=== PATIENT | male | born 1990 | race Caucasian/White ===

== ENCOUNTER 2017-01-29 09:23 | Emergency (ER) | payer OTHER ==
[~2017-01-29] VITALS: Ht 190.5 cm; Wt 98.0 kg
[~2017-01-29 09:23] MED LIST: ADDERALL 20 MG20 MG PO; AZITHROMYCIN500 MG PO; NAPRELAN500 MG PO; TYLENOL WITH C1 EACH PO
[2017-01-29] MEDS ORDERED: ALEVE220 M1 PO (09:32)
== END 2017-01-29 09:30 | disposition home or self-care (01) ==
LOC: ED 09:23
DX: Z00.8 Encounter for other general examination (principal)

== ENCOUNTER 2018-12-27 10:06 | Emergency (ER) | payer SELFPAY ==
[~2018-12-27] VITALS: Ht 190.5 cm; Wt 98.0 kg
[~2018-12-27 10:06] MED LIST changes: +ALEVE220 M1 PO
== END 2018-12-27 10:35 | disposition home or self-care (01) ==
LOC: ED 10:06
DX: K08.89 Other specified disorders of teeth and supporting structures (principal)

== ENCOUNTER 2019-12-18 13:38 | Emergency (ER) | payer SELFPAY ==
[~2019-12-18] VITALS: Ht 190.5 cm; Wt 98.0 kg
[2019-12-18] MEDS ORDERED: CLARITIN10 M2 (13:47)
[2019-12-18] MEDS ORDERED: CLARITIN10 M2 PO (13:48)
[2019-12-18] MEDS ORDERED: PREDNISONE20 MG PO (13:56)
[2019-12-18] MEDS ORDERED: NAPROSYN500 MG PO (13:56)
[2019-12-18] MEDS ORDERED: DOXYCYCLINE HY100 MG PO (13:56)
== END 2019-12-18 14:18 | disposition home or self-care (01) ==
LOC: ED 13:38
DX: I88.9 Nonspecific lymphadenitis, unspecified (principal); F17.200 Nicotine dependence, unspecified, uncomplicated; Z88.8 Allergy status to other drugs, medicaments and biological substances; Z79.899 Other long term (current) drug therapy
CPT/HCPCS: 99282

== ENCOUNTER 2020-05-02 18:45 | Emergency (ER) | payer SELFPAY ==
[~2020-05-02] VITALS: Ht 190.5 cm; Wt 98.0 kg
[~2020-05-02 18:45] MED LIST changes: +CLARITIN10 M2; +CLARITIN10 M2 PO; +DOXYCYCLINE HY100 MG PO; +NAPROSYN500 MG PO; +PREDNISONE20 MG PO
== END 2020-05-03 00:36 | disposition home or self-care (01) ==
LOC: ED 18:45
DX: K04.7 Periapical abscess without sinus (principal); F17.200 Nicotine dependence, unspecified, uncomplicated; J45.909 Unspecified asthma, uncomplicated; Z88.8 Allergy status to other drugs, medicaments and biological substances
CPT/HCPCS: 70487; 80053; 85025; 96365; 96367; 96375; 96376; 99283-25; J0295; J0696; J1100; J1170; J2405; J7030